=== PATIENT | male | born 1965 | race Caucasian/White ===

== ENCOUNTER 2018-01-24 15:05 | Emergency (ER) | payer OTHER ==
[~2018-01-24] VITALS: Ht 175.3 cm; Wt 77.1 kg
[2018-01-24] MEDS ORDERED: ADVIL200 M1 PO (15:24)
== END 2018-01-24 17:00 | disposition short-term general hospital (02) ==
LOC: ED 15:05
DX: S62.634A Displaced fracture of distal phalanx of right ring finger, initial encounter for closed fracture (principal); M20.011 Mallet finger of right finger(s); W22.8XXA Striking against or struck by other objects, initial encounter
CPT/HCPCS: 73140; 99284

== ENCOUNTER 2024-11-13 14:51 | Emergency (ER) | payer OTHER ==
[~2024-11-13] VITALS: Ht 175.3 cm; Wt 89.9 kg
[~2024-11-13 14:51] MED LIST: ADVIL200 M1 PO
[2024-11-13] MEDS ORDERED: B-121000 MC2 PO (15:15)
[2024-11-13] MEDS ORDERED: DIPHTH,PERTUSS(ACELL),TET VAC 0.5 ML SYRINGE IM ONE (15:15)
[2024-11-13 17:40] VITALS: BP 126/74
== END 2024-11-13 17:40 | disposition home or self-care (01) ==
LOC: ED 14:51
DX: S01.81XA Laceration without foreign body of other part of head, initial encounter (principal); W21.02XA Struck by soccer ball, initial encounter; Y93.66 Activity, soccer
CPT/HCPCS: 12011; 90471; 90715; 99283-25